=== PATIENT | male | born 1940 | race Caucasian/White ===

== ENCOUNTER 2017-05-24 05:00 | Inpatient (IN) ==
[2017-05-23 11:00] LABS: Basophils % 0.2 % (0.0-0.8); Eosinophils # 0.1 10*3/uL (0.0-0.87); Eosinophils % 2.4 % (0.00-10.9); Hematocrit 37.9 VOL% (42.0-52.0); Hemoglobin 12.8 GM/DL (14.0-18.0); Immature Granulocytes % 0.4 %; Immature Granulocytes Absolute 0.02 #; Lymphocytes # 0.9 10*3/uL (1.4-4.0); Lymphocytes % 18.2 % (21.2-54.2); Mean Corpuscular HGB Conc 33.8 GM/DL (32-36); Mean Corpuscular Hemoglobin 32 PG (27-34); Mean Corpuscular Volume 95.5 FL (87-102); Mean Platelet Volume 10.1 FL (9.6-12.0); Monocytes # 0.4 10*3/uL (0.11-0.8); Monocytes % 8.6 % (1.7-12.7); Neutrophils # 3.3 10*3/uL (1.4-7.4); Neutrophils % 70.2 % (38.7-73.9); Platelet Count 196 T/CUMM (130-400); Red Blood Count 3.97 MC/CUMM (3.8-5.5); Red Cell Distribution Width 14.2 % (9.3-17.3); White Blood Count 4.7 T/CUMM (4-12)
[2017-05-23 11:08] LABS: Apearance,Urine CLEAR (Clear); Bilirubin,Urine Negative (Negative); Blood, Urine Negative (Negative); Glucose,Urine (UA) Negative (Negative); Ketones,Urine Negative (Negative); Mucus,Urine Occasional /LPF (Occasional); Nitrite,Urine Negative (Negative); Protein,Urine Negative; Urine Color Yellow (Yellow); Urine Specific Gravity 1.013 (1.001-1.035); Urine Urobilinogen < 2.0 EU/DL (0.2-1.0); WBC,Urine <1 /HPF (0-6)
[2017-05-23 11:09] LABS: PT Patient Result 10.5 SECS; Partial Thromboplastin Time 27.7 SECS (0-40)
[2017-05-23 11:36] LABS: Calcium 8.5 MG/DL (8.5-10.1); Osmolality,Calculated 277.5 MOS/KG (273-304); Potassium 4.4 MMOL/L (3.5-5.1)
[~2017-05-24 05:00] MED LIST: PAPAVERINE 60 MG/2 ML VIAL ONE; SODIUM CHLORIDE 0.9% 1,000 ML IV PRN; TISSUE ADHESIVE 1 EACH APPLICATOR TOP ONE; VANCOMYCIN 1,000 MG VIAL ONE
[2017-05-24] MEDS ORDERED: CEFUROXIME INJ 1,500 MG in SODIUM CHLORIDE 0.9% 100 ML IV ONE (06:00)
[2017-05-24] MEDS ORDERED: CEFUROXIME 1,500 MG VIAL ONE (06:46)
[2017-05-24 07:52] LABS: ABG Base Excess 0.6 MMOL/L (-2.5-2.5); ABG Oxygen Saturation 99.4 % (95-100); ABG PCO2 43.1 MM HG (35-48); ABG PH 7.385 (7.35-7.45); ABG TCO2 23.2 MMOL/L (23-27); Glucose Heart Surgery 134 MG/DL (74-106); Hematocrit Heart Surgery 33.7 PERCENT (42-52); Hemoglobin Heart Surgery 10.9 G/DL (14.0-18.0); Ionized Calcium Arterial 1.18 MMOL/L (1.21-1.46); PCO2 Patient Temp Arterial 43.1 MMHG; PH Patient Temp Arterial 7.385; Patient Temperature 37 CELCIUS; Potassium Heart/CVR 3.5 MMOL/L (3.5-5.1); Sodium Heart/CVR 140 MMOL/L (135-145)
[2017-05-24 08:27] LABS: Apearance,Urine CLEAR (Clear); Bilirubin,Urine Negative (Negative); Blood, Urine Negative (Negative); Glucose,Urine (UA) Negative (Negative); Ketones,Urine Negative (Negative); Mucus,Urine Occasional /LPF (Occasional); Nitrite,Urine Negative (Negative); Protein,Urine Negative; RBC,Urine <1 /HPF (0-4); Urine Color Yellow (Yellow); Urine Specific Gravity 1.016 (1.001-1.035); Urine Urobilinogen < 2.0 EU/DL (0.2-1.0); WBC,Urine 1 /HPF (0-6)
[2017-05-24 09:26] LABS: Hematocrit Heart Surgery 23.9 PERCENT (42-52); Hemoglobin Heart Surgery 7.7 G/DL (14.0-18.0); PCO2 Patient Temp Venous 37.1 MM HG; PH Patient Temp Venous 7.454; PO2 Patient Temp Venous 33.6 MM HG; Potassium Heart/CVR 4.1 MMOL/L (3.5-5.1); VBG Base Excess 2.3 MEQ/L (0-4); VBG HCO3 26.2 MEQ/L (24-28); VBG Oxygen Saturation 76.8 %; VBG PCO2 42.9 MMHG (41-51); VBG PH 7.41; VBG PO2 41.4 MMHG (17-40)
[2017-05-24 09:54] LABS: Hematocrit Heart Surgery 25.4 PERCENT (42-52); Hemoglobin Heart Surgery 8.2 G/DL (14.0-18.0); PCO2 Patient Temp Venous 37.4 MM HG; PH Patient Temp Venous 7.448; Potassium Heart/CVR 3.8 MMOL/L (3.5-5.1); VBG Base Excess 2.1 MEQ/L (0-4); VBG PCO2 43.3 MMHG (41-51); VBG PH 7.404; VBG PO2 45.6 MMHG (17-40)
[2017-05-24] MEDS ORDERED: SODIUM BICARBONATE 50 MEQ/50 ML SYRINGE IV ONE ×2 (10:08→10:45)
[2017-05-24] MEDS ORDERED: POTASSIUM CHLORIDE RIDER 100 ML IV ONE (10:09)
[2017-05-24] MEDS ORDERED: EPINEPHrine 1 MG/10 ML SYRINGE ONE (10:09)
[2017-05-24] MEDS ORDERED: CALCIUM CHLORIDE 1,000 MG/10 ML SYRINGE IV ONE (10:09)
[2017-05-24] MEDS ORDERED: ALBUMIN 5% 12.5 GM/250 ML VIAL IV ONE (10:09)
[2017-05-24 10:30] LABS: Hematocrit Heart Surgery 26.5 PERCENT (42-52); Hemoglobin Heart Surgery 8.5 G/DL (14.0-18.0); PH Patient Temp Venous 7.411; PO2 Patient Temp Venous 36.3 MM HG; VBG Base Excess 2.4 MEQ/L (0-4); VBG HCO3 26.1 MEQ/L (24-28); VBG PH 7.411; VBG PO2 36.3 MMHG (17-40)
[2017-05-24] MEDS ORDERED: THROMBIN TOPICAL (RECOMBINANT) 5,000 UNIT VIAL TOP ONE (10:31)
[2017-05-24] MEDS ORDERED: INSULIN REGULAR DRIP 100 ML IV ONE (10:33)
[2017-05-24] MEDS ORDERED: DEXTROSE 5% KCL 20 MEQ 20 MEQ/1,000 ML BAG IV ONE (10:45)
[2017-05-24] MEDS ORDERED: PROTAMINE SULFATE 250 MG/25 ML VIAL IV ONE (10:45)
[2017-05-24] MEDS ORDERED: MAGNESIUM SULFATE 1 GM/2 ML VIAL ONE (10:45)
[2017-05-24] MEDS ORDERED: HEPARIN 10,000 UNIT/10 ML VIAL ONE (10:45)
[2017-05-24] MEDS ORDERED: ALBUMIN 25% 25 GM/100 ML VIAL IV ONE (10:45)
[2017-05-24] MEDS ORDERED: methylPREDNISolone SOD SUC 1,000 MG/8 ML VIAL ONE (10:46)
[2017-05-24] MEDS ORDERED: MANNITOL 12.5 GM/50 ML VIAL IV ONE (10:46)
[2017-05-24] MEDS ORDERED: FUROSEMIDE 20 MG/2 ML VIAL ONE (10:46)
[2017-05-24 10:55] LABS: ABG Base Excess -0.4 MMOL/L (-2.5-2.5); ABG HCO3 24.1 MMOL/L (20-26); ABG Oxygen Saturation 97.1 % (95-100); ABG PCO2 41.9 MM HG (35-48); ABG PH 7.378 (7.35-7.45); ABG TCO2 22.8 MMOL/L (23-27); Glucose Heart Surgery 218 MG/DL (74-106); Hematocrit Heart Surgery 28.3 PERCENT (42-52); Hemoglobin Heart Surgery 9.1 G/DL (14.0-18.0); Ionized Calcium Arterial 1.19 MMOL/L (1.21-1.46); PCO2 Patient Temp Arterial 41.9 MMHG; PH Patient Temp Arterial 7.378; Patient Temperature 37 CELCIUS; Potassium Heart/CVR 3.5 MMOL/L (3.5-5.1); Sodium Heart/CVR 137 MMOL/L (135-145)
[2017-05-24] MEDS ORDERED: VANCOMYCIN 1,000 MG VIAL ONE (10:56)
[2017-05-24] MEDS ORDERED: INSULIN REGULAR 100 UNIT/ML IV ONE (11:39)
[2017-05-24] MEDS ORDERED: MAGNESIUM SULF RIDER 4 GM in PREMIX 1 EACH IV PRN (11:39)
[2017-05-24] MEDS ORDERED: ACETAMINOPHEN 650 MG SUPP RECTAL PRN (11:39)
[2017-05-24] MEDS ORDERED: SODIUM CHLORIDE 0.9% 250 ML IV PRN (11:39)
[2017-05-24] MEDS ORDERED: DEXTROSE 50% 25 GM/50 ML VIAL IV PRN ×2 (11:39)
[2017-05-24] MEDS ORDERED: ONDANSETRON 4 MG/2 ML VIAL IV PRN (11:39)
[2017-05-24] MEDS ORDERED: INSULIN REGULAR 100 UNIT/ML IV PRN (11:39)
[2017-05-24] MEDS ORDERED: POTASSIUM CHLORIDE RIDER 10 MEQ in PREMIX 1 EACH IV PRN (11:39)
[2017-05-24] MEDS ORDERED: CHLORHEXIDINE 4% SOLN 118 ML BOTTLE TOP PRN (11:39)
[2017-05-24] MEDS ORDERED: MORPHINE 2 MG/1 ML SYRINGE IV PRN (11:39)
[2017-05-24] MEDS ORDERED: MIDAZOLAM 2 MG/2 ML VIAL IV PRN (11:39)
[2017-05-24] MEDS ORDERED: CALCIUM CHLORIDE 1,000 MG/10 ML SYRINGE IV PRN (11:39)
[2017-05-24] MEDS: ALBUMIN 5% 12.5 GM in PREMIX 1 EACH IV PRN ×4 (12:00→20:14)
[2017-05-24 12:07] LABS: ABG Base Excess 0.4 MMOL/L (-2.5-2.5); ABG PH 7.413 (7.35-7.45); ABG PO2 77.2 MM HG (80-95); ABG TCO2 26.2 MMOL/L (23-27); Glucose Heart Surgery 171 MG/DL (74-106); Hemoglobin Heart Surgery 9.3 G/DL (14.0-18.0); Potassium Heart/CVR 3.6 MMOL/L (3.5-5.1)
[2017-05-24 12:09] LABS: Basophils % 0.2 % (0.0-0.8); Eosinophils # 0.1 10*3/uL (0.0-0.87); Eosinophils % 0.4 % (0.00-10.9); Hematocrit 26.5 VOL% (42.0-52.0); Hemoglobin 9.1 GM/DL (14.0-18.0); Immature Granulocytes % 0.8 %; Immature Granulocytes Absolute 0.13 #; Lymphocytes # 0.5 10*3/uL (1.4-4.0); Mean Corpuscular HGB Conc 34.3 GM/DL (32-36); Mean Corpuscular Hemoglobin 33 PG (27-34); Mean Platelet Volume 10.4 FL (9.6-12.0); Monocytes # 0.7 10*3/uL (0.11-0.8); Monocytes % 4.5 % (1.7-12.7); Neutrophils # 14.3 10*3/uL (1.4-7.4); Neutrophils % 91.1 % (38.7-73.9); Platelet Count 171 T/CUMM (130-400); Red Blood Count 2.76 MC/CUMM (3.8-5.5); Red Cell Distribution Width 14.4 % (9.3-17.3); White Blood Count 15.7 T/CUMM (4-12)
[2017-05-24 12:18] LABS: INR 1.1; PT Patient Result 11.5 SECS; Partial Thromboplastin Time 28.7 SECS (0-40)
[2017-05-24 12:41] LABS: Calcium 8.7 MG/DL (8.5-10.1); Osmolality,Calculated 281.5 MOS/KG (273-304); Potassium 3.8 MMOL/L (3.5-5.1)
[2017-05-24 12:56] LABS: Band Neutrophils 2 % (0-10); Lymphocytes 4 % (20-55); Myelocytes 1 %; Segmented Neutrophils 91 % (50-85)
[2017-05-24 12:57] LABS: Platelet Estimate Normal; Total Cells Counted 100
[2017-05-24] MEDS ORDERED: INSULIN REGULAR DRIP 100 ML IV SCH (13:00)
[2017-05-24 13:01] LABS: Lactic Acid 3.4 MMOL/L (0.4-2.0)
[2017-05-24] MEDS ORDERED: MIDAZOLAM 10 MG/2 ML VIAL ONE ×2 (13:16→13:34)
[2017-05-24] MEDS: SODIUM CHLORIDE 0.45% 1,000 ML IV SCH ×2 (13:18→13:19)
[2017-05-24] MEDS: POTASSIUM CHLORIDE RIDER 20 MEQ in PREMIX 1 EACH IV PRN ×3 (13:22→17:48)
[2017-05-24] MEDS ORDERED: CALCIUM CHLORIDE 1,000 MG/10 ML VIAL IV ONE (13:33)
[2017-05-24] MEDS ORDERED: VECURONIUM 10 MG VIAL IV ONE (13:34)
[2017-05-24] MEDS ORDERED: MIDAZOLAM 2 MG/2 ML VIAL ONE (13:34)
[2017-05-24] MEDS ORDERED: ETOMIDATE 20 MG/10 ML VIAL IV ONE (13:34)
[2017-05-24] MEDS ORDERED: MINERAL OIL/PETROLATUM OPH OINT 3.5 GM TUBE ONE (13:34)
[2017-05-24] MEDS ORDERED: HEPARIN/NACL 0.9% 2 UNITS/ML 500 ML IV ONE (13:34)
[2017-05-24] MEDS ORDERED: PHENYLEPHRINE DRIP 20 MG/250 ML PREMIX IV ONE (13:34)
[2017-05-24] MEDS ORDERED: SEVOFLURANE 1 UNIT/15 MINUTE INH ONE (13:34)
[2017-05-24] MEDS ORDERED: SODIUM CHLORIDE 0.9% 2,000 ML IV ONE (13:35)
[2017-05-24] MEDS ORDERED: LACTATED RINGERS 1,000 ML IV ONE (13:35)
[2017-05-24] MEDS ORDERED: SODIUM CHLORIDE 0.9% 100 ML IV ONE (13:35)
[2017-05-24] MEDS ORDERED: SODIUM CHLORIDE 0.9% 250 ML IV ONE (13:35)
[2017-05-24] MEDS ORDERED: NITROGLYCERIN DRIP 50 MG/250 ML BOTTLE IV ONE (13:35)
[2017-05-24] MEDS ORDERED: TRANEXAMIC ACID 1,000 MG/10 ML VIAL IV ONE (13:37)
[2017-05-24 16:19] LABS: ABG Base Excess 2.5 MMOL/L (-2.5-2.5); ABG HCO3 26.6 MMOL/L (20-26); ABG Oxygen Saturation 95.8 % (95-100); ABG PCO2 43.4 MM HG (35-48); Glucose Heart Surgery 160 MG/DL (74-106); Hematocrit Heart Surgery 31.2 PERCENT (42-52); Hemoglobin Heart Surgery 10.1 G/DL (14.0-18.0); Potassium Heart/CVR 3.3 MMOL/L (3.5-5.1)
[2017-05-24] MEDS: MORPHINE 10 MG/1 ML VIAL IV PRN ×2 (19:16→21:16)
[2017-05-24] MEDS: CEFUROXIME INJ 1,500 MG in SYRINGE 1 EACH IV SCH (19:37)
[2017-05-24] MEDS: CHLORHEXIDINE 0.12% ORAL RINSE 60 ML BOTTLE SWISH/SPIT SCH (21:22)
[2017-05-25] MEDS: SODIUM CHLORIDE 0.45% 1,000 ML IV SCH ×2 (01:26→10:35)
[2017-05-25 04:58] LABS: Basophils % 0.1 % (0.0-0.8); Hematocrit 26.4 VOL% (42.0-52.0); Hemoglobin 8.9 GM/DL (14.0-18.0); Immature Granulocytes % 0.8 %; Immature Granulocytes Absolute 0.11 #; Lymphocytes # 0.4 10*3/uL (1.4-4.0); Lymphocytes % 2.7 % (21.2-54.2); Mean Corpuscular HGB Conc 33.7 GM/DL (32-36); Mean Corpuscular Hemoglobin 32 PG (27-34); Mean Corpuscular Volume 94.6 FL (87-102); Mean Platelet Volume 11.1 FL (9.6-12.0); Monocytes # 0.6 10*3/uL (0.11-0.8); Monocytes % 4.4 % (1.7-12.7); Neutrophils # 13.4 10*3/uL (1.4-7.4); Platelet Count 174 T/CUMM (130-400); Red Blood Count 2.79 MC/CUMM (3.8-5.5); Red Cell Distribution Width 14.3 % (9.3-17.3); White Blood Count 14.6 T/CUMM (4-12)
[2017-05-25] MEDS: MORPHINE 10 MG/1 ML VIAL IV PRN ×2 (05:01→11:30)
[2017-05-25 05:02] LABS: ABG Base Excess 3.2 MMOL/L (-2.5-2.5); ABG HCO3 27.5 MMOL/L (20-26); ABG Oxygen Saturation 92.7 % (95-100); ABG PCO2 40.6 MM HG (35-48); ABG PH 7.448 (7.35-7.45); ABG PO2 62.7 MM HG (80-95); ABG TCO2 28.7 MMOL/L (23-27); Glucose Heart Surgery 131 MG/DL (74-106); Hemoglobin Heart Surgery 9.2 G/DL (14.0-18.0); Potassium Heart/CVR 3.7 MMOL/L (3.5-5.1)
[2017-05-25 05:30] LABS: Calcium 8.1 MG/DL (8.5-10.1); Magnesium 1.8 MG/DL (1.8-2.4); Osmolality,Calculated 277.7 MOS/KG (273-304)
[2017-05-25 06:09] LABS: Hypochromasia 2+; Lymphocytes 6 % (20-55); Platelet Estimate Normal; Segmented Neutrophils 92 % (50-85); Total Cells Counted 100
[2017-05-25] MEDS: MAGNESIUM SULF RIDER 2 GM in PREMIX 1 EACH IV PRN ×2 (06:23→11:20)
[2017-05-25] MEDS: CEFUROXIME INJ 1,500 MG in SYRINGE 1 EACH IV SCH ×2 (07:55→21:16)
[2017-05-25] MEDS: CHLORHEXIDINE 0.12% ORAL RINSE 60 ML BOTTLE SWISH/SPIT SCH (10:35)
[2017-05-25] MEDS: INSULIN REGULAR 100 UNIT/ML SUBCUT SCH ×4 (10:35→21:06)
[2017-05-25] MEDS ORDERED: FUROSEMIDE 40 MG/4 ML VIAL IV ONE (11:01)
[2017-05-25] MEDS: ASPIRIN EC 325 MG TABLET PO SCH (11:04)
[2017-05-25] MEDS: FUROSEMIDE 40 MG TABLET PO SCH (11:04)
[2017-05-25] MEDS: ATORVASTATIN 40 MG TABLET PO SCH ×2 (11:05→21:06)
[2017-05-25] MEDS: CHOLECALCIFEROL 1,000 UNIT TABLET PO SCH (13:48)
[2017-05-25] MEDS: MAGNESIUM OXIDE 400 MG TABLET PO SCH (21:06)
[2017-05-25] MEDS: POTASSIUM CHLORIDE 10 MEQ TABLET PO SCH (21:06)
[2017-05-25] MEDS: CARBIDOPA/LEVODOPA 25-100 MG TABLET PO SCH (21:14)
[2017-05-26] MEDS: INSULIN REGULAR 100 UNIT/ML SUBCUT SCH ×6 (00:31→20:49)
[2017-05-26] MEDS: CHLORHEXIDINE 0.12% ORAL RINSE 60 ML BOTTLE SWISH/SPIT SCH ×3 (00:31→20:49)
[2017-05-26] MEDS ORDERED: SODIUM CHLORIDE 0.9% 100 ML IV ONE (05:00)
[2017-05-26] MEDS ORDERED: DILTIAZEM 100 MG VIAL.ADD IV ONE (05:00)
[2017-05-26] MEDS: DILTIAZEM INJ 100 MG in SODIUM CHLORIDE 0.9% 100 ML IV SCH ×3 (05:02→18:38)
[2017-05-26] MEDS ORDERED: LEVALBUTEROL 1.25 MG/3 ML NEB RESP TX ONE (05:39)
[2017-05-26 05:40] LABS: Basophils % 0.1 % (0.0-0.8); Hematocrit 26.8 VOL% (42.0-52.0); Hemoglobin 9.1 GM/DL (14.0-18.0); Immature Granulocytes % 1.1 %; Immature Granulocytes Absolute 0.18 #; Lymphocytes # 0.6 10*3/uL (1.4-4.0); Lymphocytes % 3.7 % (21.2-54.2); Mean Corpuscular Hemoglobin 32 PG (27-34); Monocytes # 1.2 10*3/uL (0.11-0.8); Monocytes % 7.3 % (1.7-12.7); Neutrophils % 87.8 % (38.7-73.9); Platelet Count 171 T/CUMM (130-400); Red Blood Count 2.82 MC/CUMM (3.8-5.5); Red Cell Distribution Width 14.7 % (9.3-17.3); White Blood Count 17.1 T/CUMM (4-12)
[2017-05-26 06:08] LABS: Band Neutrophils 1 % (0-10); Hypochromasia 1+; Lymphocytes 3 % (20-55); Microcytosis Slight; Segmented Neutrophils 88 % (50-85); Total Cells Counted 100
[2017-05-26 06:09] LABS: Platelet Estimate Adequate
[2017-05-26 06:12] LABS: Calcium 8.2 MG/DL (8.5-10.1); Magnesium 2.3 MG/DL (1.8-2.4); Osmolality,Calculated 281.8 MOS/KG (273-304); Potassium 4.1 MMOL/L (3.5-5.1)
[2017-05-26] MEDS ORDERED: FUROSEMIDE 40 MG/4 ML VIAL IV ONE (06:27)
[2017-05-26] MEDS: CALCIUM (CARBONATE)/VITAMIN D 500 MG-200 UNIT TABLET PO SCH (08:45)
[2017-05-26] MEDS: MAGNESIUM OXIDE 400 MG TABLET PO SCH ×2 (08:46→20:49)
[2017-05-26] MEDS: MULTIVITAMIN (OCUVITE) TABLET PO SCH (08:46)
[2017-05-26] MEDS: CHOLECALCIFEROL 1,000 UNIT TABLET PO SCH (08:47)
[2017-05-26] MEDS: ASPIRIN EC 325 MG TABLET PO SCH (08:47)
[2017-05-26] MEDS: FUROSEMIDE 40 MG TABLET PO SCH (08:47)
[2017-05-26] MEDS ORDERED: METOPROLOL SUCCINATE XL 25 MG TABLET PO SCH (09:00)
[2017-05-26] MEDS: LOSARTAN/HCTZ 50-12.5 MG TABLET PO SCH (09:58)
[2017-05-26] MEDS ORDERED: DIGOXIN 0.5 MG/2 ML AMP IV ONE (10:28)
[2017-05-26] MEDS ORDERED: AMIODARONE INJ 450 MG in DEXTROSE 5% 241 ML IV SCH (10:30)
[2017-05-26] MEDS ORDERED: ALBUTEROL 2.5 MG/3 ML NEB RESP TX SCH (11:00)
[2017-05-26] MEDS: methylPREDNISolone SOD SUC 40 MG/1 ML VIAL IV SCH ×2 (11:21→21:35)
[2017-05-26] MEDS: CEFEPIME 1,000 MG in SYRINGE 1 EACH IV SCH ×2 (11:23→21:28)
[2017-05-26] MEDS ORDERED: AMIODARONE INJ 150 MG in DEXTROSE 5% 100 ML IV ONE (11:30)
[2017-05-26] MEDS: ALBUTEROL/IPRATROPIUM 3 ML NEB RESP TX SCH ×2 (14:23→19:51)
[2017-05-26] MEDS: AMIODARONE INJ 450 MG in DEXTROSE 5% 241 ML IV SCH (19:12)
[2017-05-26] MEDS: CARBIDOPA/LEVODOPA 25-100 MG TABLET PO SCH (20:48)
[2017-05-26] MEDS: METOPROLOL SUCCINATE XL 25 MG TABLET PO SCH (20:49)
[2017-05-26] MEDS: POTASSIUM CHLORIDE 10 MEQ TABLET PO SCH (20:49)
[2017-05-26] MEDS: ATORVASTATIN 40 MG TABLET PO SCH (20:49)
[2017-05-27] MEDS: INSULIN REGULAR 100 UNIT/ML SUBCUT SCH ×6 (00:40→21:32)
[2017-05-27] MEDS: ALBUTEROL/IPRATROPIUM 3 ML NEB RESP TX SCH ×4 (00:41→19:21)
[2017-05-27] MEDS: AMIODARONE INJ 450 MG in DEXTROSE 5% 241 ML IV SCH (02:49)
[2017-05-27 04:30] LABS: Basophils % 0.1 % (0.0-0.8); Hematocrit 26.2 VOL% (42.0-52.0); Hemoglobin 8.9 GM/DL (14.0-18.0); Immature Granulocytes % 1.2 %; Immature Granulocytes Absolute 0.18 #; Lymphocytes # 0.6 10*3/uL (1.4-4.0); Lymphocytes % 4.2 % (21.2-54.2); Mean Corpuscular Hemoglobin 33 PG (27-34); Mean Corpuscular Volume 95.6 FL (87-102); Mean Platelet Volume 11.5 FL (9.6-12.0); Monocytes # 0.8 10*3/uL (0.11-0.8); Monocytes % 5.1 % (1.7-12.7); Neutrophils # 13.6 10*3/uL (1.4-7.4); Neutrophils % 89.4 % (38.7-73.9); Platelet Count 182 T/CUMM (130-400); Red Blood Count 2.74 MC/CUMM (3.8-5.5); Red Cell Distribution Width 14.7 % (9.3-17.3); White Blood Count 15.2 T/CUMM (4-12)
[2017-05-27 05:03] LABS: Calcium 8.3 MG/DL (8.5-10.1); Magnesium 2.5 MG/DL (1.8-2.4); Osmolality,Calculated 286.5 MOS/KG (273-304); Potassium 4.4 MMOL/L (3.5-5.1)
[2017-05-27 05:13] LABS: Band Neutrophils 3 % (0-10); Hypochromasia 1+; Lymphocytes 4 % (20-55); Segmented Neutrophils 90 % (50-85); Total Cells Counted 100
[2017-05-27 05:14] LABS: Microcytosis Slight; Platelet Estimate Adequate
[2017-05-27] MEDS: DILTIAZEM INJ 100 MG in SODIUM CHLORIDE 0.9% 100 ML IV SCH (05:42)
[2017-05-27] MEDS: DILTIAZEM CD 180 MG CAPSULE PO SCH (09:05)
[2017-05-27] MEDS: LOSARTAN/HCTZ 50-12.5 MG TABLET PO SCH (09:06)
[2017-05-27] MEDS: CHOLECALCIFEROL 1,000 UNIT TABLET PO SCH (09:06)
[2017-05-27] MEDS: MAGNESIUM OXIDE 400 MG TABLET PO SCH ×2 (09:06→21:32)
[2017-05-27] MEDS: ASPIRIN EC 325 MG TABLET PO SCH (09:06)
[2017-05-27] MEDS: MULTIVITAMIN (OCUVITE) TABLET PO SCH (09:06)
[2017-05-27] MEDS: FUROSEMIDE 40 MG TABLET PO SCH (09:06)
[2017-05-27] MEDS: METOPROLOL SUCCINATE XL 25 MG TABLET PO SCH ×2 (09:06→21:32)
[2017-05-27] MEDS: CALCIUM (CARBONATE)/VITAMIN D 500 MG-200 UNIT TABLET PO SCH (09:06)
[2017-05-27] MEDS: CHLORHEXIDINE 0.12% ORAL RINSE 60 ML BOTTLE SWISH/SPIT SCH ×2 (09:07→21:33)
[2017-05-27] MEDS ORDERED: FUROSEMIDE 40 MG/4 ML VIAL IV ONE (11:58)
[2017-05-27] MEDS: ASCORBIC ACID 500 MG TABLET PO SCH ×2 (17:21→21:32)
[2017-05-27] MEDS: ATORVASTATIN 40 MG TABLET PO SCH (21:32)
[2017-05-27] MEDS: CARBIDOPA/LEVODOPA 25-100 MG TABLET PO SCH (21:32)
[2017-05-27] MEDS: POTASSIUM CHLORIDE 10 MEQ TABLET PO SCH (21:32)
[2017-05-28] MEDS: ALBUTEROL/IPRATROPIUM 3 ML NEB RESP TX SCH ×4 (01:16→18:56)
[2017-05-28 01:38] LABS: Basophils % 0.1 % (0.0-0.8); Hematocrit 26.1 VOL% (42.0-52.0); Hemoglobin 8.9 GM/DL (14.0-18.0); Immature Granulocytes % 2.1 %; Immature Granulocytes Absolute 0.32 #; Lymphocytes # 1.5 10*3/uL (1.4-4.0); Lymphocytes % 10.2 % (21.2-54.2); Mean Corpuscular HGB Conc 34.1 GM/DL (32-36); Mean Corpuscular Hemoglobin 33 PG (27-34); Mean Corpuscular Volume 95.3 FL (87-102); Mean Platelet Volume 11.5 FL (9.6-12.0); Monocytes # 1.2 10*3/uL (0.11-0.8); Monocytes % 8.3 % (1.7-12.7); Neutrophils # 11.9 10*3/uL (1.4-7.4); Neutrophils % 79.3 % (38.7-73.9); Platelet Count 198 T/CUMM (130-400); Red Blood Count 2.74 MC/CUMM (3.8-5.5); Red Cell Distribution Width 14.8 % (9.3-17.3)
[2017-05-28] MEDS ORDERED: METOPROLOL TARTRATE 5 MG/5 ML VIAL IV ONE ×3 (05:17→06:37)
[2017-05-28] MEDS ORDERED: DILTIAZEM 100 MG VIAL.ADD IV ONE (09:00)
[2017-05-28] MEDS ORDERED: SODIUM CHLORIDE 0.9% 100 ML IV ONE (09:01)
[2017-05-28] MEDS ORDERED: FUROSEMIDE 40 MG/4 ML VIAL ONE (09:22)
[2017-05-28 09:53] LABS: Calcium 8.3 MG/DL (8.5-10.1); Magnesium 2.4 MG/DL (1.8-2.4); Osmolality,Calculated 286.7 MOS/KG (273-304)
[2017-05-28] MEDS ORDERED: DILTIAZEM INJ 100 MG in SODIUM CHLORIDE 0.9% 100 ML IV SCH (10:30)
[2017-05-28] MEDS: INSULIN REGULAR 100 UNIT/ML SUBCUT SCH ×4 (11:21→22:41)
[2017-05-28] MEDS: AMIODARONE 200 MG TABLET PO SCH ×2 (11:21→21:42)
[2017-05-28] MEDS: DILTIAZEM CD 180 MG CAPSULE PO SCH (11:22)
[2017-05-28] MEDS: MULTIVITAMIN (OCUVITE) TABLET PO SCH (11:22)
[2017-05-28] MEDS: MAGNESIUM OXIDE 400 MG TABLET PO SCH ×2 (11:22→21:42)
[2017-05-28] MEDS: ASPIRIN EC 325 MG TABLET PO SCH (11:22)
[2017-05-28] MEDS: FUROSEMIDE 40 MG TABLET PO SCH (11:22)
[2017-05-28] MEDS: LOSARTAN/HCTZ 50-12.5 MG TABLET PO SCH (11:22)
[2017-05-28] MEDS: CALCIUM (CARBONATE)/VITAMIN D 500 MG-200 UNIT TABLET PO SCH (11:23)
[2017-05-28] MEDS: METOPROLOL SUCCINATE XL 25 MG TABLET PO SCH (11:23)
[2017-05-28] MEDS: CHLORHEXIDINE 0.12% ORAL RINSE 60 ML BOTTLE SWISH/SPIT SCH ×2 (11:23→21:53)
[2017-05-28] MEDS: ASCORBIC ACID 500 MG TABLET PO SCH ×2 (11:23→21:41)
[2017-05-28] MEDS: CHOLECALCIFEROL 1,000 UNIT TABLET PO SCH (11:23)
[2017-05-28] MEDS ORDERED: LACTATED RINGERS 500 ML IV ONE ×3 (16:30→20:44)
[2017-05-28] MEDS ORDERED: AMIODARONE 450 MG/9 ML VIAL IV ONE (16:35)
[2017-05-28] MEDS ORDERED: AMIODARONE INJ 150 MG in DEXTROSE 5% 100 ML IV ONE ×2 (17:14→17:30)
[2017-05-28] MEDS ORDERED: AMIODARONE INJ 450 MG in DEXTROSE 5% 241 ML IV SCH (17:45)
[2017-05-28] MEDS: CARBIDOPA/LEVODOPA 25-100 MG TABLET PO SCH (21:41)
[2017-05-28] MEDS: POTASSIUM CHLORIDE 10 MEQ TABLET PO SCH (21:42)
[2017-05-28] MEDS: ATORVASTATIN 40 MG TABLET PO SCH (21:42)
[2017-05-28] MEDS: AMIODARONE INJ 450 MG in DEXTROSE 5% 241 ML IV SCH (23:00)
[2017-05-29] MEDS: ALBUTEROL/IPRATROPIUM 3 ML NEB RESP TX SCH ×4 (00:07→19:29)
[2017-05-29] MEDS: INSULIN REGULAR 100 UNIT/ML SUBCUT SCH ×5 (03:39→17:58)
[2017-05-29 04:52] LABS: Basophils % 0.1 % (0.0-0.8); Eosinophils # 0.1 10*3/uL (0.0-0.87); Eosinophils % 0.8 % (0.00-10.9); Hematocrit 26.9 VOL% (42.0-52.0); Hemoglobin 9.1 GM/DL (14.0-18.0); Immature Granulocytes % 2.7 %; Immature Granulocytes Absolute 0.27 #; Lymphocytes # 1.8 10*3/uL (1.4-4.0); Lymphocytes % 17.7 % (21.2-54.2); Mean Corpuscular HGB Conc 33.8 GM/DL (32-36); Mean Corpuscular Hemoglobin 32 PG (27-34); Mean Corpuscular Volume 95.1 FL (87-102); Mean Platelet Volume 11.9 FL (9.6-12.0); Monocytes # 1.1 10*3/uL (0.11-0.8); Neutrophils # 6.7 10*3/uL (1.4-7.4); Neutrophils % 67.7 % (38.7-73.9); Platelet Count 231 T/CUMM (130-400); Red Blood Count 2.83 MC/CUMM (3.8-5.5); Red Cell Distribution Width 14.6 % (9.3-17.3); White Blood Count 9.9 T/CUMM (4-12)
[2017-05-29 05:24] LABS: Calcium 7.9 MG/DL (8.5-10.1); Magnesium 2.2 MG/DL (1.8-2.4); Osmolality,Calculated 283.8 MOS/KG (273-304)
[2017-05-29] MEDS ORDERED: CALCIUM GLUCONATE 1,000 MG in SODIUM CHLORIDE 0.9% 100 ML IV ONE (06:52)
[2017-05-29] MEDS ORDERED: cloNIDine 0.1 MG TABLET PO SCH (09:00)
[2017-05-29] MEDS: FUROSEMIDE 40 MG TABLET PO SCH (09:18)
[2017-05-29] MEDS: AMIODARONE 200 MG TABLET PO SCH ×2 (09:18→22:22)
[2017-05-29] MEDS: CHOLECALCIFEROL 1,000 UNIT TABLET PO SCH (09:18)
[2017-05-29] MEDS: LOSARTAN 50 MG TABLET PO SCH (09:18)
[2017-05-29] MEDS: DILTIAZEM CD 180 MG CAPSULE PO SCH (09:18)
[2017-05-29] MEDS: ASPIRIN EC 325 MG TABLET PO SCH (09:19)
[2017-05-29] MEDS: CALCIUM (CARBONATE)/VITAMIN D 500 MG-200 UNIT TABLET PO SCH (09:19)
[2017-05-29] MEDS: METOPROLOL SUCCINATE XL 25 MG TABLET PO SCH ×2 (09:19→22:21)
[2017-05-29] MEDS: MULTIVITAMIN (OCUVITE) TABLET PO SCH (09:19)
[2017-05-29] MEDS: ASCORBIC ACID 500 MG TABLET PO SCH ×2 (09:19→22:30)
[2017-05-29] MEDS: MAGNESIUM OXIDE 400 MG TABLET PO SCH ×2 (09:19→22:24)
[2017-05-29] MEDS: CHLORHEXIDINE 0.12% ORAL RINSE 60 ML BOTTLE SWISH/SPIT SCH ×2 (09:20→22:25)
[2017-05-29] MEDS ORDERED: APIXABAN 5 MG TABLET PO SCH (11:00)
[2017-05-29] MEDS ORDERED: MIDAZOLAM 10 MG/2 ML VIAL ONE (11:40)
[2017-05-29] MEDS ORDERED: NALOXONE 0.4 MG/ML VIAL ONE (11:40)
[2017-05-29] MEDS ORDERED: FLUMAZENIL 0.5 MG/5 ML VIAL IV ONE (11:41)
[2017-05-29] MEDS ORDERED: MIDAZOLAM 10 MG/2 ML VIAL IV ONE (11:49)
[2017-05-29] MEDS ORDERED: LACTATED RINGERS 500 ML IV ONE (13:42)
[2017-05-29] MEDS ORDERED: AMIODARONE INJ 150 MG in DEXTROSE 5% 100 ML IV ONE (14:27)
[2017-05-29] MEDS: AMIODARONE INJ 450 MG in DEXTROSE 5% 241 ML IV SCH (14:48)
[2017-05-29] MEDS ORDERED: SODIUM CHLORIDE 0.9% 500 ML IV ONE (21:19)
[2017-05-29] MEDS: APIXABAN 5 MG TABLET PO SCH (22:22)
[2017-05-29] MEDS: POTASSIUM CHLORIDE 10 MEQ TABLET PO SCH (22:23)
[2017-05-29] MEDS: ATORVASTATIN 40 MG TABLET PO SCH (22:24)
[2017-05-29] MEDS: CARBIDOPA/LEVODOPA 25-100 MG TABLET PO SCH (22:24)
[2017-05-30] MEDS: ALBUTEROL/IPRATROPIUM 3 ML NEB RESP TX SCH ×2 (01:10→07:43)
[2017-05-30] MEDS: INSULIN REGULAR 100 UNIT/ML SUBCUT SCH ×7 (02:26→22:07)
[2017-05-30 05:58] LABS: Basophils % 0.1 % (0.0-0.8); Eosinophils # 0.2 10*3/uL (0.0-0.87); Eosinophils % 2.6 % (0.00-10.9); Hematocrit 25.3 VOL% (42.0-52.0); Hemoglobin 8.6 GM/DL (14.0-18.0); Immature Granulocytes Absolute 0.18 #; Lymphocytes # 1.4 10*3/uL (1.4-4.0); Lymphocytes % 15.4 % (21.2-54.2); Mean Corpuscular Hemoglobin 33 PG (27-34); Mean Corpuscular Volume 96.2 FL (87-102); Mean Platelet Volume 11.4 FL (9.6-12.0); Monocytes # 0.9 10*3/uL (0.11-0.8); Monocytes % 10.4 % (1.7-12.7); Neutrophils # 6.2 10*3/uL (1.4-7.4); Neutrophils % 69.5 % (38.7-73.9); Platelet Count 225 T/CUMM (130-400); Red Blood Count 2.63 MC/CUMM (3.8-5.5); Red Cell Distribution Width 14.8 % (9.3-17.3); White Blood Count 8.9 T/CUMM (4-12)
[2017-05-30 06:30] LABS: Calcium 7.9 MG/DL (8.5-10.1); Magnesium 2.1 MG/DL (1.8-2.4); Osmolality,Calculated 283.7 MOS/KG (273-304); Potassium 4.1 MMOL/L (3.5-5.1)
[2017-05-30] MEDS ORDERED: SODIUM CHLORIDE 0.9% 1,000 ML IV PRN (07:21)
[2017-05-30] MEDS: AMIODARONE INJ 450 MG in DEXTROSE 5% 241 ML IV SCH (07:57)
[2017-05-30] MEDS: ASCORBIC ACID 500 MG TABLET PO SCH ×2 (09:15→22:14)
[2017-05-30] MEDS: CALCIUM (CARBONATE)/VITAMIN D 500 MG-200 UNIT TABLET PO SCH (09:15)
[2017-05-30] MEDS: METOPROLOL SUCCINATE XL 25 MG TABLET PO SCH (09:16)
[2017-05-30] MEDS: MAGNESIUM OXIDE 400 MG TABLET PO SCH ×2 (09:16→22:00)
[2017-05-30] MEDS: DILTIAZEM CD 180 MG CAPSULE PO SCH (09:16)
[2017-05-30] MEDS: CHLORHEXIDINE 0.12% ORAL RINSE 60 ML BOTTLE SWISH/SPIT SCH ×2 (09:17→22:15)
[2017-05-30] MEDS: APIXABAN 5 MG TABLET PO SCH ×2 (09:17→22:03)
[2017-05-30] MEDS: AMIODARONE 200 MG TABLET PO SCH ×2 (09:17→21:58)
[2017-05-30] MEDS: LOSARTAN 50 MG TABLET PO SCH (09:17)
[2017-05-30] MEDS: CHOLECALCIFEROL 1,000 UNIT TABLET PO SCH (09:17)
[2017-05-30] MEDS: FUROSEMIDE 40 MG TABLET PO SCH (09:17)
[2017-05-30] MEDS: MULTIVITAMIN (OCUVITE) TABLET PO SCH (09:17)
[2017-05-30] MEDS: ASPIRIN EC 325 MG TABLET PO SCH (09:18)
[2017-05-30] MEDS ORDERED: FUROSEMIDE 40 MG/4 ML VIAL IV ONE (10:42)
[2017-05-30 19:49] LABS: Hematocrit 29.4 VOL% (42.0-52.0); Hemoglobin 10.1 GM/DL (14.0-18.0)
[2017-05-30] MEDS: ATORVASTATIN 40 MG TABLET PO SCH (21:57)
[2017-05-30] MEDS: POTASSIUM CHLORIDE 10 MEQ TABLET PO SCH (21:57)
[2017-05-30] MEDS: CARBIDOPA/LEVODOPA 25-100 MG TABLET PO SCH (21:58)
[2017-05-30] MEDS: DILTIAZEM CD 240 MG CAPSULE PO SCH (22:00)
[2017-05-30] MEDS: CARVEDILOL 6.25 MG TABLET PO SCH (22:01)
[2017-05-31] MEDS: AMIODARONE INJ 450 MG in DEXTROSE 5% 241 ML IV SCH ×2 (01:22→12:20)
[2017-05-31] MEDS: INSULIN REGULAR 100 UNIT/ML SUBCUT SCH ×3 (01:38→12:15)
[2017-05-31 04:41] LABS: Basophils % 0.1 % (0.0-0.8); Eosinophils # 0.4 10*3/uL (0.0-0.87); Hematocrit 27.8 VOL% (42.0-52.0); Hemoglobin 9.4 GM/DL (14.0-18.0); Immature Granulocytes % 2.4 %; Immature Granulocytes Absolute 0.23 #; Lymphocytes # 1.5 10*3/uL (1.4-4.0); Lymphocytes % 15.6 % (21.2-54.2); Mean Corpuscular HGB Conc 33.8 GM/DL (32-36); Mean Corpuscular Hemoglobin 32 PG (27-34); Mean Corpuscular Volume 93.9 FL (87-102); Mean Platelet Volume 11.3 FL (9.6-12.0); Monocytes % 10.1 % (1.7-12.7); Neutrophils # 6.4 10*3/uL (1.4-7.4); Neutrophils % 67.8 % (38.7-73.9); Platelet Count 244 T/CUMM (130-400); Red Blood Count 2.96 MC/CUMM (3.8-5.5); Red Cell Distribution Width 15.1 % (9.3-17.3); White Blood Count 9.5 T/CUMM (4-12)
[2017-05-31 05:22] LABS: Calcium 7.8 MG/DL (8.5-10.1); Magnesium 2.2 MG/DL (1.8-2.4); Osmolality,Calculated 279.8 MOS/KG (273-304); Potassium 4.3 MMOL/L (3.5-5.1)
[2017-05-31] MEDS: ASCORBIC ACID 500 MG TABLET PO SCH (08:44)
[2017-05-31] MEDS: AMIODARONE 200 MG TABLET PO SCH (08:44)
[2017-05-31] MEDS: CALCIUM (CARBONATE)/VITAMIN D 500 MG-200 UNIT TABLET PO SCH (08:44)
[2017-05-31] MEDS: DILTIAZEM CD 240 MG CAPSULE PO SCH (08:44)
[2017-05-31] MEDS: CHOLECALCIFEROL 1,000 UNIT TABLET PO SCH (08:46)
[2017-05-31] MEDS: APIXABAN 5 MG TABLET PO SCH (08:46)
[2017-05-31] MEDS: ASPIRIN EC 325 MG TABLET PO SCH (08:46)
[2017-05-31] MEDS: FUROSEMIDE 40 MG TABLET PO SCH (08:46)
[2017-05-31] MEDS: MAGNESIUM OXIDE 400 MG TABLET PO SCH (08:46)
[2017-05-31] MEDS: MULTIVITAMIN (OCUVITE) TABLET PO SCH (08:47)
[2017-05-31] MEDS: CARVEDILOL 6.25 MG TABLET PO SCH (08:47)
[2017-05-31] MEDS: CHLORHEXIDINE 0.12% ORAL RINSE 60 ML BOTTLE SWISH/SPIT SCH (08:50)
[2017-05-31] MEDS ORDERED: FUROSEMIDE 40 MG/4 ML VIAL IV ONE (10:30)
[2017-05-31] MEDS ORDERED: LEVOFLOXACIN 750 MG TABLET PO SCH (10:30)
[2017-05-31 11:43] VITALS: BP 114/69
[2017-05-31] MEDS ORDERED: TUBERCULIN SKIN TEST 0.1 ML SYRINGE INTRADERM ONE (14:00)
== END 2017-05-31 16:05 | DRG 234 ==
LOC: N.SDSINP 05:35 → N.CVR 09:07 → N.TELES 05-25 11:45
PROVIDERS: ADMIT Thoracic Surgery (Cardiothoracic Vascular Surgery); ATTEND Thoracic Surgery (Cardiothoracic Vascular Surgery)

== ENCOUNTER 2018-08-02 10:54 | Inpatient (IN) ==
[2018-08-02 12:23] LABS: Basophils % 0.2 % (0.0-0.8); Eosinophils % 0.1 % (0.00-10.9); Hematocrit 34.4 VOL% (42.0-52.0); Hemoglobin 10.9 GM/DL (14.0-18.0); Immature Granulocytes % 0.9 %; Immature Granulocytes Absolute 0.09 #; Lymphocytes # 0.9 10*3/uL (1.4-4.0); Lymphocytes % 8.8 % (21.2-54.2); Mean Corpuscular HGB Conc 31.7 GM/DL (32-36); Mean Corpuscular Hemoglobin 27 PG (27-34); Mean Corpuscular Volume 86.4 FL (87-102); Mean Platelet Volume 11.6 FL (9.6-12.0); Monocytes # 1.1 10*3/uL (0.11-0.8); Monocytes % 11.2 % (1.7-12.7); Neutrophils % 78.8 % (38.7-73.9); Platelet Count 145 T/CUMM (130-400); Red Blood Count 3.98 MC/CUMM (3.8-5.5); Red Cell Distribution Width 15.4 % (9.3-17.3); White Blood Count 10.1 T/CUMM (4-12)
[2018-08-02] MEDS ORDERED: ONDANSETRON 4 MG/2 ML VIAL IV PRN (12:55)
[2018-08-02 12:56] LABS: Albumin 3.1 G/DL (3.4-5.0); Calcium 8.5 MG/DL (8.5-10.1); Potassium 3.4 MMOL/L (3.5-5.1); Total Protein 7.1 G/DL (6.4-8.3)
[2018-08-02] MEDS ORDERED: traMADol 50 MG TABLET PO PRN (14:07)
[2018-08-02] MEDS: VANCOMYCIN INJ 1,750 MG in SODIUM CHLORIDE 0.9% 500 ML IV SCH (17:02)
[2018-08-02] MEDS ORDERED: ENOXAPARIN 40 MG/0.4 ML SYRINGE SUBCUT SCH (21:00)
[2018-08-02] MEDS: POTASSIUM CHLORIDE 10 MEQ TABLET PO SCH (21:43)
[2018-08-02] MEDS: CARVEDILOL 12.5 MG TABLET PO SCH (21:43)
[2018-08-02] MEDS: FUROSEMIDE 40 MG TABLET PO SCH (21:43)
[2018-08-02] MEDS: MAGNESIUM OXIDE 400 MG TABLET PO SCH (21:44)
[2018-08-02] MEDS: KETOCONAZOLE 2% CREAM 30 GM TUBE TOP SCH (21:44)
[2018-08-02] MEDS: ATORVASTATIN 40 MG TABLET PO SCH (21:44)
[2018-08-02] MEDS: CARBIDOPA/LEVODOPA 25-100 MG TABLET PO SCH (21:45)
[2018-08-02] MEDS: ASCORBIC ACID 500 MG TABLET PO SCH (21:45)
[2018-08-03] MEDS ORDERED: ACETAMINOPHEN 500 MG TABLET PO PRN (00:20)
[2018-08-03] MEDS: VANCOMYCIN INJ 1,750 MG in SODIUM CHLORIDE 0.9% 500 ML IV SCH (04:05)
[2018-08-03 05:21] LABS: Basophils % 0.4 % (0.0-0.8); Eosinophils # 0.1 10*3/uL (0.0-0.87); Eosinophils % 0.6 % (0.00-10.9); Hematocrit 31.8 VOL% (42.0-52.0); Hemoglobin 10.1 GM/DL (14.0-18.0); Immature Granulocytes % 0.5 %; Immature Granulocytes Absolute 0.04 #; Lymphocytes # 1.2 10*3/uL (1.4-4.0); Lymphocytes % 15.1 % (21.2-54.2); Mean Corpuscular HGB Conc 31.8 GM/DL (32-36); Mean Corpuscular Hemoglobin 27 PG (27-34); Mean Corpuscular Volume 85.9 FL (87-102); Mean Platelet Volume 11.7 FL (9.6-12.0); Monocytes % 13.3 % (1.7-12.7); Neutrophils # 5.5 10*3/uL (1.4-7.4); Neutrophils % 70.1 % (38.7-73.9); Platelet Count 129 T/CUMM (130-400); Red Cell Distribution Width 15.5 % (9.3-17.3); White Blood Count 7.8 T/CUMM (4-12)
[2018-08-03 05:48] LABS: Calcium 8.4 MG/DL (8.5-10.1); Osmolality,Calculated 276.8 MOS/KG (273-304); Potassium 3.5 MMOL/L (3.5-5.1)
[2018-08-03] MEDS ORDERED: BACITRACIN OINT 0.9 GM PACK TOP ONE (09:38)
[2018-08-03] MEDS ORDERED: MAGNESIUM HYDROXIDE SUSP 30 ML UDCUP PO PRN (11:00)
[2018-08-03] MEDS ORDERED: MORPHINE 4 MG/1 ML VIAL IV PRN (11:00)
[2018-08-03] MEDS ORDERED: SEVOFLURANE 1 UNIT/15 MINUTE INH ONE (11:01)
[2018-08-03] MEDS ORDERED: PROPOFOL 200 MG/20 ML VIAL IV ONE (11:01)
[2018-08-03] MEDS ORDERED: ETOMIDATE 40 MG/20 ML VIAL IV ONE (11:02)
[2018-08-03] MEDS ORDERED: PHENYLEPHRINE 1 MG/10 ML SYRINGE IV ONE (11:02)
[2018-08-03] MEDS ORDERED: fentaNYL 100 MCG/2 ML VIAL ONE (11:02)
[2018-08-03] MEDS ORDERED: ONDANSETRON 4 MG/2 ML VIAL ONE (11:02)
[2018-08-03] MEDS: LACTATED RINGERS 1,000 ML IV SCH (13:02)
[2018-08-03] MEDS: cloNIDine 0.1 MG TABLET PO SCH (13:03)
[2018-08-03] MEDS: CHOLECALCIFEROL 1,000 UNIT TABLET PO SCH (13:04)
[2018-08-03] MEDS: CALCIUM (CARBONATE)/VITAMIN D 500 MG-200 UNIT TABLET PO SCH (13:04)
[2018-08-03] MEDS: ASCORBIC ACID 500 MG TABLET PO SCH ×2 (13:04→21:05)
[2018-08-03] MEDS: PANTOPRAZOLE 40 MG TABLET PO SCH (13:05)
[2018-08-03] MEDS: CARVEDILOL 12.5 MG TABLET PO SCH ×2 (13:05→21:06)
[2018-08-03] MEDS: DILTIAZEM CD 240 MG CAPSULE PO SCH (13:05)
[2018-08-03] MEDS: ESCITALOPRAM 10 MG TABLET PO SCH (13:05)
[2018-08-03] MEDS: MAGNESIUM OXIDE 400 MG TABLET PO SCH ×2 (13:05→21:05)
[2018-08-03] MEDS: ASPIRIN EC 81 MG TABLET PO SCH (13:05)
[2018-08-03] MEDS: FUROSEMIDE 40 MG TABLET PO SCH ×2 (13:05→21:05)
[2018-08-03] MEDS: KETOCONAZOLE 2% CREAM 30 GM TUBE TOP SCH ×2 (13:11→21:15)
[2018-08-03] MEDS: VANCOMYCIN INJ 1,500 MG in SODIUM CHLORIDE 0.9% 500 ML IV SCH (15:50)
[2018-08-03] MEDS: ATORVASTATIN 40 MG TABLET PO SCH (21:06)
[2018-08-03] MEDS: CARBIDOPA/LEVODOPA 25-100 MG TABLET PO SCH (21:06)
[2018-08-03] MEDS: POTASSIUM CHLORIDE 10 MEQ TABLET PO SCH (21:06)
[2018-08-04] MEDS: VANCOMYCIN INJ 1,500 MG in SODIUM CHLORIDE 0.9% 500 ML IV SCH ×2 (04:32→17:54)
[2018-08-04 05:07] LABS: Basophils % 0.2 % (0.0-0.8); Eosinophils # 0.1 10*3/uL (0.0-0.87); Eosinophils % 0.7 % (0.00-10.9); Hemoglobin 9.7 GM/DL (14.0-18.0); Immature Granulocytes % 0.6 %; Immature Granulocytes Absolute 0.05 #; Lymphocytes % 11.5 % (21.2-54.2); Mean Corpuscular HGB Conc 31.3 GM/DL (32-36); Mean Corpuscular Hemoglobin 27 PG (27-34); Mean Corpuscular Volume 86.1 FL (87-102); Mean Platelet Volume 11.8 FL (9.6-12.0); Monocytes # 0.9 10*3/uL (0.11-0.8); Monocytes % 9.7 % (1.7-12.7); Neutrophils # 6.9 10*3/uL (1.4-7.4); Neutrophils % 77.3 % (38.7-73.9); Platelet Count 139 T/CUMM (130-400); Red Cell Distribution Width 15.5 % (9.3-17.3)
[2018-08-04 05:21] LABS: Calcium 8.1 MG/DL (8.5-10.1); Osmolality,Calculated 272.1 MOS/KG (273-304); Potassium 3.7 MMOL/L (3.5-5.1)
[2018-08-04] MEDS: LACTATED RINGERS 1,000 ML IV SCH (06:06)
[2018-08-04] MEDS ORDERED: FUROSEMIDE 20 MG TABLET ONE (08:30)
[2018-08-04] MEDS: ENOXAPARIN 40 MG/0.4 ML SYRINGE SUBCUT SCH (09:32)
[2018-08-04] MEDS: CALCIUM (CARBONATE)/VITAMIN D 500 MG-200 UNIT TABLET PO SCH (09:33)
[2018-08-04] MEDS: MAGNESIUM OXIDE 400 MG TABLET PO SCH ×2 (09:33→20:55)
[2018-08-04] MEDS: KETOCONAZOLE 2% CREAM 30 GM TUBE TOP SCH ×2 (09:33→20:56)
[2018-08-04] MEDS: DILTIAZEM CD 240 MG CAPSULE PO SCH (09:34)
[2018-08-04] MEDS: FUROSEMIDE 40 MG TABLET PO SCH ×2 (09:34→20:55)
[2018-08-04] MEDS: CARVEDILOL 12.5 MG TABLET PO SCH ×2 (09:35→20:55)
[2018-08-04] MEDS: CHOLECALCIFEROL 1,000 UNIT TABLET PO SCH (09:35)
[2018-08-04] MEDS: cloNIDine 0.1 MG TABLET PO SCH (09:35)
[2018-08-04] MEDS: ASCORBIC ACID 500 MG TABLET PO SCH ×2 (09:35→20:55)
[2018-08-04] MEDS: ESCITALOPRAM 10 MG TABLET PO SCH (09:35)
[2018-08-04] MEDS: PANTOPRAZOLE 40 MG TABLET PO SCH (09:35)
[2018-08-04] MEDS: ASPIRIN EC 81 MG TABLET PO SCH (09:36)
[2018-08-04] MEDS: CLINDAMYCIN 300 MG CAPSULE PO SCH ×3 (14:25→23:59)
[2018-08-04] MEDS: ATORVASTATIN 40 MG TABLET PO SCH (20:55)
[2018-08-04] MEDS: CARBIDOPA/LEVODOPA 25-100 MG TABLET PO SCH (20:55)
[2018-08-04] MEDS: POTASSIUM CHLORIDE 10 MEQ TABLET PO SCH (20:55)
[2018-08-05] MEDS: VANCOMYCIN INJ 1,500 MG in SODIUM CHLORIDE 0.9% 500 ML IV SCH (04:30)
[2018-08-05 04:52] LABS: Basophils % 0.5 % (0.0-0.8); Eosinophils # 0.2 10*3/uL (0.0-0.87); Eosinophils % 2.6 % (0.00-10.9); Hematocrit 33.4 VOL% (42.0-52.0); Hemoglobin 10.6 GM/DL (14.0-18.0); Immature Granulocytes % 0.7 %; Immature Granulocytes Absolute 0.04 #; Lymphocytes # 1.2 10*3/uL (1.4-4.0); Mean Corpuscular HGB Conc 31.7 GM/DL (32-36); Mean Corpuscular Hemoglobin 27 PG (27-34); Monocytes # 0.7 10*3/uL (0.11-0.8); Monocytes % 11.4 % (1.7-12.7); Neutrophils % 64.8 % (38.7-73.9); Platelet Count 187 T/CUMM (130-400); Red Blood Count 3.93 MC/CUMM (3.8-5.5); Red Cell Distribution Width 15.1 % (9.3-17.3); White Blood Count 6.1 T/CUMM (4-12)
[2018-08-05] MEDS: CLINDAMYCIN 300 MG CAPSULE PO SCH ×2 (06:47→11:19)
[2018-08-05] MEDS: CALCIUM (CARBONATE)/VITAMIN D 500 MG-200 UNIT TABLET PO SCH (08:57)
[2018-08-05] MEDS: DILTIAZEM CD 240 MG CAPSULE PO SCH (08:57)
[2018-08-05] MEDS: FUROSEMIDE 40 MG TABLET PO SCH (08:57)
[2018-08-05] MEDS: ENOXAPARIN 40 MG/0.4 ML SYRINGE SUBCUT SCH (08:57)
[2018-08-05] MEDS: ESCITALOPRAM 10 MG TABLET PO SCH (08:58)
[2018-08-05] MEDS: ASCORBIC ACID 500 MG TABLET PO SCH (08:58)
[2018-08-05] MEDS: CHOLECALCIFEROL 1,000 UNIT TABLET PO SCH (08:58)
[2018-08-05] MEDS: MAGNESIUM OXIDE 400 MG TABLET PO SCH (08:58)
[2018-08-05] MEDS: cloNIDine 0.1 MG TABLET PO SCH (08:58)
[2018-08-05] MEDS: PANTOPRAZOLE 40 MG TABLET PO SCH (08:58)
[2018-08-05] MEDS: ASPIRIN EC 81 MG TABLET PO SCH (08:58)
[2018-08-05] MEDS: KETOCONAZOLE 2% CREAM 30 GM TUBE TOP SCH (08:59)
[2018-08-05] MEDS: CARVEDILOL 12.5 MG TABLET PO SCH (08:59)
[2018-08-05 11:49] VITALS: BP 120/66
== END 2018-08-05 13:27 | disposition home or self-care (01) | DRG 501 ==
LOC: N.ED 10:54 → N.EDINP 12:55 → SUATTDRO 12:55 → N.2E 14:12
PROVIDERS: ADMIT Hospitalist; ATTEND Internal Medicine Nephrology

== ENCOUNTER 2019-06-28 19:59 | Observation (INO) ==
[2019-06-28 20:52] LABS: Basophils % 0.1 % (0.0-0.8); Hematocrit 37.3 VOL% (42.0-52.0); Hemoglobin 12.2 GM/DL (14.0-18.0); Immature Granulocytes % 0.5 %; Immature Granulocytes Absolute 0.06 #; Lymphocytes # 0.4 10*3/uL (1.4-4.0); Lymphocytes % 3.6 % (21.2-54.2); Mean Corpuscular HGB Conc 32.7 GM/DL (32-36); Mean Corpuscular Volume 88.6 FL (87-102); Mean Platelet Volume 11.7 FL (9.6-12.0); Neutrophils % 91.8 % (38.7-73.9); Platelet Count 129 T/CUMM (130-400); Red Blood Count 4.21 MC/CUMM (3.8-5.5); Red Cell Distribution Width 15.2 % (9.3-17.3); White Blood Count 11.7 T/CUMM (4-12)
[2019-06-28 21:14] LABS: Hypochromasia 1+; Lymphocytes 6 % (20-55); Platelet Estimate Adequate; Segmented Neutrophils 91 % (50-85); Total Cells Counted 100
[2019-06-28 21:14] LABS: Apearance,Urine CLEAR (Clear); Bilirubin,Urine Negative (Negative); Blood, Urine Negative (Negative); Glucose,Urine (UA) Negative (Negative); Ketones,Urine Negative (Negative); Mucus,Urine Occasional /LPF (Occasional); Nitrite,Urine Negative (Negative); Protein,Urine Negative; Squamous Epithelial Cell,Urine Occasional /HPF (0-10); Urine Color Yellow (Yellow); Urine Specific Gravity 1.023 (1.001-1.035); Urine Urobilinogen < 2.0 EU/DL (0.2-1.0); WBC,Urine <1 /HPF (0-6)
[2019-06-28 21:15] LABS: Anisocytosis Slight; Microcytosis Slight; Polychromasia 1+
[2019-06-28 21:17] LABS: Albumin 3.4 G/DL (3.4-5.0); Bilirubin,Total 1.1 MG/DL (0.2-1.0); Calcium 9.1 MG/DL (8.5-10.1); Osmolality,Calculated 278.8 MOS/KG (273-304); Total Protein 7.2 G/DL (6.4-8.3)
[2019-06-29] MEDS ORDERED: FUROSEMIDE 40 MG/4 ML VIAL IV STA (00:16)
[2019-06-29] MEDS ORDERED: MEROPENEM 1,000 MG in SODIUM CHLORIDE 0.9% 100 ML IV STA (00:25)
[2019-06-29] MEDS ORDERED: ACETAMINOPHEN 500 MG TABLET PO STA (03:31)
[2019-06-29] MEDS ORDERED: ENOXAPARIN 30 MG/0.3 ML SYRINGE SUBCUT SCH (10:30)
[2019-06-29] MEDS ORDERED: cefTRIAXone 1,000 MG in SYRINGE 1 EACH IV SCH (11:00)
[2019-06-29] MEDS ORDERED: POTASSIUM CHLORIDE 20 MEQ TABLET PO ONE (13:42)
[2019-06-29] MEDS ORDERED: POTASSIUM CHLORIDE 20 MEQ TABLET PO SCH (14:00)
[2019-06-29] MEDS ORDERED: ENZALUTAMIDE 160 MG PO SCH (16:00)
[2019-06-29] MEDS: FUROSEMIDE 40 MG TABLET PO SCH (20:56)
[2019-06-29] MEDS: carvediloL 12.5 MG TABLET PO SCH (20:56)
[2019-06-29] MEDS ORDERED: CARBIDOPA/LEVODOPA 25-100 MG TABLET PO SCH ×2 (21:00)
[2019-06-29] MEDS ORDERED: ATORVASTATIN 40 MG TABLET PO SCH (21:00)
[2019-06-30 04:45] LABS: Basophils % 0.4 % (0.0-0.8); Eosinophils % 0.7 % (0.00-10.9); Hematocrit 35.1 VOL% (42.0-52.0); Hemoglobin 11.3 GM/DL (14.0-18.0); Immature Granulocytes % 1.1 %; Immature Granulocytes Absolute 0.05 #; Lymphocytes # 1.1 10*3/uL (1.4-4.0); Lymphocytes % 24.6 % (21.2-54.2); Mean Corpuscular HGB Conc 32.2 GM/DL (32-36); Mean Corpuscular Volume 88.9 FL (87-102); Mean Platelet Volume 11.4 FL (9.6-12.0); Neutrophils % 58.2 % (38.7-73.9); Platelet Count 99 T/CUMM (130-400); Red Blood Count 3.95 MC/CUMM (3.8-5.5); Red Cell Distribution Width 14.8 % (9.3-17.3); White Blood Count 4.6 T/CUMM (4-12)
[2019-06-30 04:55] LABS: Calcium 8.3 MG/DL (8.5-10.1); Osmolality,Calculated 284.3 MOS/KG (273-304)
[2019-06-30 05:15] LABS: Band Neutrophils 4 % (0-10); Eosinophils 1 % (0-10); Lymphocytes 22 % (20-55); Nucleated Red Blood Cells 1 (0-5); Segmented Neutrophils 63 % (50-85)
[2019-06-30 05:16] LABS: Platelet Estimate Adequate; Total Cells Counted 100
[2019-06-30 08:01] VITALS: BP 123/64
[2019-06-30] MEDS ORDERED: CYANOCOBALAMIN 5000 MCG SL SCH (09:00)
[2019-06-30] MEDS ORDERED: ASPIRIN EC 81 MG TABLET PO SCH (09:00)
[2019-06-30] MEDS ORDERED: cloNIDine 0.1 MG TABLET PO SCH (09:00)
[2019-06-30] MEDS ORDERED: POTASSIUM CHLORIDE 20 MEQ TABLET PO SCH (09:00)
[2019-06-30] MEDS ORDERED: PANTOPRAZOLE 40 MG TABLET PO SCH (09:00)
[2019-06-30] MEDS ORDERED: POTASSIUM CHLORIDE 20 MEQ TABLET PO ONE (09:06)
[2019-06-30] MEDS: carvediloL 12.5 MG TABLET PO SCH (09:47)
[2019-06-30] MEDS: FUROSEMIDE 40 MG TABLET PO SCH (09:47)
== END 2019-06-30 10:36 | disposition home or self-care (01) ==
LOC: N.EDINP 19:59 → N.ED 19:59 → N.EDINP 06-29 03:42 → N.4E 06-29 03:53
PROVIDERS: ADMIT Family Medicine; ATTEND Family Medicine

== ENCOUNTER 2022-09-17 15:47 | Observation (INO) ==
[2022-09-17] MEDS ORDERED: ACETAMINOPHEN 500 MG TABLET PO PRN (17:03)
[2022-09-17] MEDS ORDERED: ONDANSETRON 4 MG/2 ML VIAL IV PRN (17:04)
[2022-09-17 17:30] LABS: Basophils % 0.1 % (0.0-0.8); Eosinophils % 0.1 % (0.00-10.9); Hematocrit 38.1 VOL% (42.0-52.0); Hemoglobin 12.5 GM/DL (14.0-18.0); Immature Granulocytes % 1.6 %; Immature Granulocytes Absolute 0.16 #; Lymphocytes # 0.7 10*3/uL (1.4-4.0); Lymphocytes % 6.6 % (21.2-54.2); Mean Corpuscular HGB Conc 32.8 GM/DL (32-36); Mean Corpuscular Volume 93.2 FL (87-102); Mean Platelet Volume 10.9 FL (9.6-12.0); Monocytes % 9.4 % (1.7-12.7); Neutrophils % 82.2 % (38.7-73.9); Platelet Count 129 T/CUMM (130-400); Red Blood Count 4.09 MC/CUMM (3.8-5.5); Red Cell Distribution Width 14.4 % (9.3-17.3); White Blood Count 10.29 T/CUMM (4-12)
[2022-09-17] MEDS ORDERED: DOCUSATE SODIUM 100 MG CAPSULE PO PRN (17:31)
[2022-09-17] MEDS ORDERED: ACETAMINOPHEN 325 MG TABLET PO PRN (17:31)
[2022-09-17 17:40] LABS: INR 0.9; PT Patient Result 10.3 SECS (10.1-12.1)
[2022-09-17 17:55] LABS: Albumin 3.7 G/DL (3.4-5.0); Bilirubin,Total 0.9 MG/DL (0.20-1.00); Calcium 8.9 MG/DL (8.5-10.1); Osmolality,Calculated 280.5 MOS/KG (273-304); Potassium 4.1 MMOL/L (3.5-5.1); Thyroid Stimulating Hormone 1.63 uIU/ml (0.358-3.74); Total Protein 7.3 G/DL (6.4-8.2)
[2022-09-17] MEDS: SODIUM CHLORIDE 0.9% 1,000 ML IV SCH (18:20)
[2022-09-17] MEDS ORDERED: KETOROLAC 15 MG/1 ML VIAL IM PRN (19:13)
[2022-09-17 21:22] LABS: Bacteria,Urine Occasional /HPF (Few); Mucus,Urine Moderate /LPF (Occasional); RBC,Urine <1 /HPF (0-4); Urine Color Yellow (Yellow)
[2022-09-17 21:23] LABS: Bilirubin,Urine Negative (Negative); Blood, Urine Negative (Negative); Glucose,Urine (UA) Negative (Negative); Ketones,Urine Negative (Negative); Nitrite,Urine Positive (Negative); Protein,Urine Negative (Negative); Urine Appearance Clear (Clear); Urine Urobilinogen 0.2 eU/dL (<2.0); Urine pH 7.5 (4.5-8.0)
[2022-09-18] MEDS: SODIUM CHLORIDE 0.9% 1,000 ML IV SCH ×2 (04:21→14:37)
[2022-09-18] MEDS: ASPIRIN EC 81 MG TABLET PO SCH (08:47)
[2022-09-18] MEDS: PANTOPRAZOLE 40 MG TABLET PO SCH (08:47)
[2022-09-18] MEDS: POTASSIUM CHLORIDE 20 MEQ TABLET PO SCH (08:47)
[2022-09-18] MEDS: ESCITALOPRAM 10 MG TABLET PO SCH (08:47)
[2022-09-18] MEDS: ROSUVASTATIN 20 MG TABLET PO SCH (08:48)
[2022-09-18] MEDS: FUROSEMIDE 40 MG TABLET PO SCH ×2 (08:48→16:04)
[2022-09-18] MEDS: carvediloL 12.5 MG TABLET PO SCH ×2 (08:48→16:04)
[2022-09-18] MEDS: MAGNESIUM OXIDE 400 MG TABLET PO SCH ×2 (08:49→21:06)
[2022-09-18] MEDS: ENZALUTAMIDE 40 MG PO SCH (08:50)
[2022-09-18] MEDS: IPRATROPIUM 0.06% NASAL SPRAY 15 ML BOTTLE BOTH NARES SCH ×2 (08:51→21:07)
[2022-09-18] MEDS ORDERED: CARBIDOPA/LEVODOPA 25-100 MG TABLET PO SCH (21:00)
[2022-09-18] MEDS: APIXABAN 5 MG TABLET PO SCH (21:07)
[2022-09-19] MEDS: SODIUM CHLORIDE 0.9% 1,000 ML IV SCH (01:34)
[2022-09-19 05:29] LABS: Basophils % 0.3 % (0.0-0.8); Eosinophils # 0.1 10*3/uL (0.0-0.87); Eosinophils % 1.2 % (0.00-10.9); Hematocrit 34.6 VOL% (42.0-52.0); Hemoglobin 11.6 GM/DL (14.0-18.0); Immature Granulocytes % 1.7 %; Lymphocytes % 17.9 % (21.2-54.2); Mean Corpuscular HGB Conc 33.5 GM/DL (32-36); Mean Corpuscular Volume 93.3 FL (87-102); Mean Platelet Volume 10.9 FL (9.6-12.0); Monocytes % 17.9 % (1.7-12.7); Platelet Count 112 T/CUMM (130-400); Red Blood Count 3.71 MC/CUMM (3.8-5.5); Red Cell Distribution Width 14.3 % (9.3-17.3)
[2022-09-19 05:47] LABS: Calcium 8.6 MG/DL (8.5-10.1); Osmolality,Calculated 283.3 MOS/KG (273-304); Potassium 3.6 MMOL/L (3.5-5.1)
[2022-09-19 05:48] LABS: Band Neutrophils 1 % (0-10); Lymphocytes 19 % (20-55); Total Cells Counted 100
[2022-09-19 05:49] LABS: Microcytosis Slight; Platelet Estimate Adequate
[2022-09-19] MEDS ORDERED: POTASSIUM CHLORIDE 20 MEQ TABLET PO ONE (09:23)
[2022-09-19] MEDS: ASPIRIN EC 81 MG TABLET PO SCH (10:08)
[2022-09-19] MEDS: FUROSEMIDE 40 MG TABLET PO SCH (10:08)
[2022-09-19] MEDS: carvediloL 12.5 MG TABLET PO SCH (10:08)
[2022-09-19] MEDS: APIXABAN 5 MG TABLET PO SCH (10:09)
[2022-09-19] MEDS: ROSUVASTATIN 20 MG TABLET PO SCH (10:09)
[2022-09-19] MEDS: POTASSIUM CHLORIDE 20 MEQ TABLET PO SCH (10:10)
[2022-09-19] MEDS: MAGNESIUM OXIDE 400 MG TABLET PO SCH (10:11)
[2022-09-19] MEDS: PANTOPRAZOLE 40 MG TABLET PO SCH (10:12)
[2022-09-19] MEDS: IPRATROPIUM 0.06% NASAL SPRAY 15 ML BOTTLE BOTH NARES SCH (10:16)
[2022-09-19] MEDS: ESCITALOPRAM 10 MG TABLET PO SCH (10:20)
[2022-09-19] MEDS: ENZALUTAMIDE 40 MG PO SCH (10:59)
[2022-09-19 12:12] VITALS: BP 140/82
[2022-09-19] MEDS ORDERED: AMIODARONE 200 MG TABLET PO SCH (12:26)
== END 2022-09-19 14:53 | disposition home health service (06) ==
LOC: N.3E → OBSVTOIN 16:06 → INTOOBSV 17:18
PROVIDERS: ADMIT Family Medicine; ATTEND Family Medicine